=== PATIENT | female | born 1975 | race Caucasian/White ===

== ENCOUNTER 2016-12-02 12:19 | Emergency (ER) | payer BC ==
[~2016-12-02] VITALS: Ht 160 cm; Wt 76.3 kg
[2016-12-02 12:47] LABS: ADD MIUA? YES; BILIRUBIN NEGATIVE; BLOOD LARGE; GLUCOSE (STRIP) NEGATIVE; KETONES NEGATIVE; LEUKOCYTES MODERATE; NITRITE NEGATIVE; PH, URINE 7.5 (5-8); PROTEIN (STRIP) TRACE; SPECIFIC GRAVITY 1.016 (1.000-1.030); UROBILINOGEN 0.2 MG/DL (0.2-1.0)
[2016-12-02 12:48] LABS: COLOR LT YELLOW ((YELLOW))
[2016-12-02 13:04] LABS: HEMATOCRIT 39.7 % (36.0-46.0); MCH 29.3 PG (29.0-34.0); MCHC 34.5 G/DL (30.0-36.0); MEAN PLAT.VOLUME 10.3 uM^3 (9.5-12.4); PLATELET COUNT 226 K/uL (156-360); RBC DIS.WIDTH-CV 12.5 % (11.8-14.6); RBC DIS.WIDTH-SD 37.7 % (39-53); RED BLOOD COUNT 4.67 M/uL (3.80-5.20); WHITE BLOOD COUNT 6.2 K/uL (4.1-10.2)
[2016-12-02 13:11] LABS: RED BLOOD CELLS 15-20 /HPF (0-5)
[2016-12-02 13:12] LABS: BACTERIA RARE; CASTS NONE SEEN /LPF; CRYSTALS NONE SEEN; EPITHELIAL CELLS 1+; MUCUS NONE SEEN; UCUL ADDED? NO
[2016-12-02 13:15] LABS: CHLORIDE 107 mEq/L (99-109); POTASSIUM 4.3 mEq/L (3.7-5.4); SODIUM 141 mEq/L (136-147)
[2016-12-02 13:17] LABS: GLUCOSE 78 mg/dL (70-99)
[2016-12-02 13:18] LABS: ANION GAP 8 MEQ/L (2-14)
[2016-12-02 13:21] LABS: GFR ESTIMATE (CALCULATED) > 59 mL/min/
[2016-12-02 13:22] LABS: UREA NITROGEN (BUN) 10 mg/dL (9-23)
[2016-12-02 13:30] LABS: QUANTITATIVE HCG < 4.0 MIU/ML
[2016-12-02] MEDS ORDERED: NEXIUM20 MG PO (15:40)
[2016-12-02] MEDS ORDERED: NAPROXEN500 MG PO (17:02)
[2016-12-02] MEDS ORDERED: FLOMAX0.4 MG PO (17:02)
[2016-12-02 17:19] VITALS: BP 127/99
== END 2016-12-02 17:20 | disposition home or self-care (01) ==
LOC: EME 12:19
DX: N13.2 Hydronephrosis with renal and ureteral calculous obstruction (principal); R31.9 Hematuria, unspecified
CPT/HCPCS: 74176; 80048; 81003; 84702; 85027; 99281; 99284